=== PATIENT | male | born 1990 | race Two or more races ===

== ENCOUNTER 2021-02-13 22:48 | Emergency (ER) | payer SELFPAY ==
[~2021-02-13] VITALS: Ht 162.6 cm; Wt 80.0 kg
[2021-02-13] MEDS ORDERED: ONDANSETRON HCL 4MG/2ML INJ IV STA (23:37)
[2021-02-13] MEDS ORDERED: MORPHINE SULFATE 4 MG/ML CPJ (NOT FOR IM USE) IV STA (23:37)
[2021-02-13] MEDS ORDERED: SODIUM CHLORIDE 0.9% 1,000 ML IV ONE (23:45)
[2021-02-13 23:56] LABS: BASOPHILS % 0.4 % (0.0-2.0); HEMATOCRIT. 45.9 % (42.0-52.0); LYMPHOCYTES % 8.7 % (20.0-50.0); MEAN CORPUSCULAR VOLUME 91.9 fL (80.0-94.0); MEAN PLATELET VOLUME 8.9 fl (7.4-10.4); MONOCYTES % 4.2 % (2.0-8.0); NEUTROPHILS % 86.7 % (40.0-76.0); PLATELET 209 x1000/uL (130-400); RED CELL DISTRIBUTION WIDTH 13.6 % (11.6-14.6)
[2021-02-14 00:01] LABS: PROTHROMBIN TIME 10.6 sec (9.6-11.0)
[2021-02-14 00:02] LABS: CHLORIDE 97 mEq/L (98-107)
[2021-02-14 00:27] LABS: ETHANOL BLOOD 301 mg/dL
[2021-02-14] MEDS ORDERED: FOLIC ACID 1 MG, THIAMINE HCL 100 MG in DEXTROSE 5% WATER 1,000 ML IV ONE (02:00)
[2021-02-14] MEDS ORDERED: SODIUM CHLORIDE 0.9% 1,000 ML IV ONE ×2 (02:00→03:45)
[2021-02-14] MEDS ORDERED: MULTIVITAMINS,THER W-MINERALS TABLET PO NR (02:00)
[2021-02-14] MEDS ORDERED: TETANUS, DIPHTHERIA, PERTUSSIS VAC/PF 0.5ML (>7YR OLD) IM ONE (02:30)
[2021-02-14] MEDS ORDERED: DEXT 5%/0.9% NACL 1,000 ML IV NR (04:15)
[2021-02-14] MEDS ORDERED: SODIUM CHLORIDE 0.9% 1,000 ML IV NR (05:00)
[2021-02-14] MEDS ORDERED: CHLORDIAZEPOXIDE 25MG CAPSULE PO ONE (08:45)
[2021-02-14] MEDS ORDERED: IBUPROFEN 400MG TABLET PO ONE (08:45)
[2021-02-14] MEDS ORDERED: L25 MT (09:35)
[2021-02-14 09:40] VITALS: BP 110/68
== END 2021-02-14 10:10 | disposition home or self-care (01) ==
LOC: ER 22:48
DX: F10.229 Alcohol dependence with intoxication, unspecified (principal); Y90.8 Blood alcohol level of 240 mg/100 ml or more; R11.2 Nausea with vomiting, unspecified; R10.84 Generalized abdominal pain; R50.9 Fever, unspecified
CPT/HCPCS: 36415; 71045; 80053; 80320; 83605; 83690; 83880; 84484; 85025; 85610; 87040; 90471; 90715; 93005; 96361; 96365; 96375; 99285; J2270; J2405; J3411; J3490; J7030; J7042; J7070; Z7610; G0480